=== PATIENT | male | born 1980 | race African-American/Black ===

== ENCOUNTER 2018-10-02 17:18 | Emergency (ER) | payer OTHER ==
--- NOTE | 2018-10-02 19:03 | XRAY Report ---
Reason: cough Procedure Date: 10/02/2018 Accession Number: [id number] / [id number] Procedure: XR - Chest 2 View X-Ray CPT Code: 86964 FULL RESULT: EXAM: CHEST RADIOGRAPHY EXAM DATE: 10/02/2018 06:23 PM. CLINICAL HISTORY: Cough. COMPARISON: None. TECHNIQUE: 2 views. FINDINGS: Lungs/Pleura: No focal opacities evident. No pleural effusion. No pneumothorax. Normal volumes. Mediastinum: Heart and mediastinal contours are unremarkable. Other: None. IMPRESSION: Normal 2-view chest radiography. [facility]
--- NOTE | 2018-10-02 19:19 | ED Physician Documentation ---
PD HPI URI - Stated complaint Stated Complaint: COUGH, CHEST PAIN, BODY ACHE - Chief complaint Chief Complaint: Resp - History obtained from History obtained from: Patient - History of Present Illness Timing - onset: How many weeks ago (2) Timing duration: Weeks (2) Timing details: Abrupt onset, Still present (had URI symptoms initially and then was feeling like she started to get better, then cough worsened with green sputum and tightness for breathing.) Associated symptoms: Productive cough, Chest pain (anteriorly with coughing), Dyspnea. No: Fever Contributing factors: No: Sick contact, Travel Similar symptoms before: Has not had sx before Recently seen: Not recently seen Review of Systems Constitutional: reports: Myalgias, Fatigue. denies: Fever, Chills Nose: reports: Rhinorrhea / runny nose, Congestion (2 weeks ago, but is improved the past week) Throat: denies: Sore throat Cardiac: reports: Chest pain / pressure (with coughing) Respiratory: reports: Dyspnea, Cough, Wheezing GI: denies: Abdominal Pain, Nausea, Vomiting Musculoskeletal: denies: Extremity swelling PD PAST MEDICAL HISTORY - Past Medical History Cardiovascular: None Respiratory: None - Present Medications Home Medications: Ambulatory Orders Medication Instructions Recorded Confirmed Albuterol Sulf [Ventolin Hfa 1 - 2 puffs INH Q4HR PRN #1 inhaler 10/02/18 Inhaler] Benzonatate [Tessalon Perle] 100 - 200 mg PO TID PRN #30 capsule 10/02/18 Dexamethasone [Decadron] 4 mg PO DAILY #5 tablet 10/02/18 Doxycycline Hyclate 100 mg PO BID #20 capsule 10/02/18 Ibuprofen [Advil] 400 mg PO 10/02/18 - Allergies Allergies/Adverse Reactions: Allergies Allergy/AdvReac Type Severity Reaction Status Date / Time No Known Drug Allergies Allergy Verified 10/02/18 17:49 PD ED PE NORMAL - Vitals Vital signs reviewed: Yes - General General: Alert and oriented X 3, No acute distress, Well developed/nourished - HEENT HEENT: Ears normal, Moist mucous membranes, Pharynx benign - Neck Neck: Supple, no meningeal sign, No adenopathy - Cardiac Cardiac: RRR, No murmur - Respiratory Respiratory: Clear bilaterally, Other (some expiratory wheezing noted central chest. Congested cough.) - Abdomen Abdomen: Normal bowel sounds, Soft, Non tender, Non distended Results - Vitals Vitals: Oxygen O2 Source Room air - Labs Labs: Microbiology 10/02/18 19:20 Group A Strep Throat Culture - Preliminary Throat CULTURE IN PROGRESS. RESULTS TO FOLLOW. Laboratory Tests 10/02/18 19:20 Group A Strep Rapid Negative - Rads (name of study) chest xray Radiology: Prelim report reviewed (no infiltrates), EMP read contemporaneously PD MEDICAL DECISION MAKING - ED course Complexity details: considered differential, d/w patient Departure - Departure Disposition: Home, Self Care Clinical Impression: Acute bronchitis Qualifiers: Bronchitis organism: unspecified organism Qualified Code(s): J20.9 - Acute bronchitis, unspecified Condition: Stable Record reviewed to determine appropriate education?: Yes Instructions: ED Upper Resp Infec Abx Tx Follow-Up: JAY LÓPEZ III, MD [Primary Care Provider] - Prescriptions: Albuterol Sulf [Ventolin Hfa Inhaler] 1 - 2 puffs INH Q4HR PRN #1 inhaler PRN Reason: Shortness Of Air/Wheezing Benzonatate [Tessalon Perle] 100 - 200 mg PO TID PRN #30 capsule PRN Reason: Cough Dexamethasone [Decadron] 4 mg PO DAILY #5 tablet Doxycycline Hyclate 100 mg PO BID #20 capsule Comments: Stay well-hydrated. Tylenol or ibuprofen if needed for fevers or pains. Use albuterol inhaler 2 puffs 4 times a day for the next 7-10 days then other times as needed. Decadron steroid daily for 5 more days. Tessalon if needed for cough. Doxycycline for potential bacterial component to the infection. Recheck if not improving over the next few days. Off work for 1 or 2 days. Forms: Activity restrictions Discharge Date/Time: 10/02/18 20:39
[2018-10-02] MEDS ORDERED: DOXYCYCLINE 100 MG TABLET PO STA (19:40)
[2018-10-02] MEDS ORDERED: DEXAMETHASONE 10 MG/ML VIAL PO STA (19:40)
[2018-10-02] MEDS ORDERED: BENZONATATE 100 MG CAPSULE PO STA (19:40)
[2018-10-02] MEDS ORDERED: CHERRY SYRUP 10 ML UDC PO ONE (19:48)
[2018-10-02 20:34] VITALS: BP 141/98
== END 2018-10-02 20:39 | disposition home or self-care (01) ==
LOC: ED 17:18
DX: J02.9 Acute pharyngitis, unspecified (principal)
CPT/HCPCS: 71046; 87070; 87430; 99283; A9270

== ENCOUNTER 2018-10-05 11:26 | Outpatient (CLI) | payer OTHER ==
[2018-10-05] MEDS ORDERED: BUFFERED LIDOCAINE 10 ML SYRINGE ONE (12:18)
[2018-10-05] MEDS ORDERED: GADOPENTETATE DIMEGLUMINE 5 ML VIAL IVP ONE ×3 (12:19→15:12)
[2018-10-05] MEDS ORDERED: IOTHALAMATE MEGLUMINE 50 ML VIAL ONE (12:19)
[2018-10-05] MEDS ORDERED: IOTHALAMATE MEGLUMINE 50 ML VIAL IVP ONE ×2 (15:12)
[2018-10-05] MEDS ORDERED: BUFFERED LIDOCAINE 10 ML SYRINGE IU ONE ×2 (15:12→16:00)
[2018-10-05] MEDS: BUFFERED LIDOCAINE 10 ML SYRINGE IU ONE ×3 (15:15→15:20)
--- NOTE | 2018-10-05 15:53 | XRAY Report ---
Reason: OTHER ARTICULAR CARTILAGE DISORDERS, UNSPECIFIED S Procedure Date: 10/05/2018 Accession Number: [id number] / [id number] Procedure: FL - Arthrogram Needle Placement CPT Code: FULL RESULT: EXAM: RIGHT SHOULDER ARTHROGRAPHIC INJECTION WITH FLUOROSCOPIC GUIDANCE EXAM DATE: 10/05/2018 01:32 PM. CLINICAL HISTORY: OTHER ARTICULAR CARTILAGE DISORDERS, UNSPECIFIED S. COMPARISON: ARTHROGRAM SHOULDER RT 10/05/2018 1:33 PM. TECHNIQUE: The risks, benefits, and alternatives of the procedure were discussed with the patient. All questions were answered. Written and verbal consent were obtained. The glenohumeral joint was marked under fluoroscopy and prepped and draped in a sterile manner. Local anesthesia was performed with 1% lidocaine. A 22-gauge needle was then inserted into the glenohumeral joint. 10 mL of a solution containing 25% 1% lidocaine, 25% iodinated contrast, and a 1:200 dilution of gadolinium contrast in sterile saline was then injected. The needle was removed without immediate complication. Other: None. Fluoroscopy Time: 0.3 minutes. Number of Images: 5. FINDINGS: Bones and joints: No fracture or subluxation. Injection: Fluoroscopic images demonstrate needle placement and contrast in the glenohumeral joint. No contrast extravasation outside of the glenohumeral joint. IMPRESSION: Successful fluoroscopically guided arthrographic injection of the shoulder. [facility]
--- NOTE | 2018-10-05 17:35 | MRI Report ---
Reason: OTHER ARTICULAR CARTILAGE DISORDERS, UNSPECIFIED S Procedure Date: 10/05/2018 Accession Number: [id number] / [id number] Procedure: MRI - Arthrogram Shoulder RT CPT Code: FULL RESULT: EXAM: RIGHT SHOULDER MRI ARTHROGRAM WITH CONTRAST EXAM DATE: 10/05/2018 02:05 PM. CLINICAL HISTORY: Multiple dislocations. Shoulder pain. COMPARISON: None. TECHNIQUE: Multiplanar, multisequence T1-weighted and fluid-sensitive sequences of the shoulder after an arthrographic injection of dilute gadolinium, dictated under a separate exam. Other: None. FINDINGS: Acromioclavicular Region: The acromion is type II. AC joint is moderately osteoarthritic. The coracoacromial and coracoclavicular ligaments are intact. There is no contrast or fluid in the subacromial/subdeltoid bursa. Glenohumeral Region: No subluxation. No loose bodies. The articular cartilage is unremarkable. The glenohumeral ligaments and joint capsule are unremarkable. Bone Marrow: No fracture, marrow edema or bone lesions. No Hill-Sachs or bony Bankart is identified. Labrum: There is a type II SLAP lesion at the undersurface of the biceps labral attachment outlined well with contrast. Series 601 image 10. Biceps Tendon: The long head of the biceps tendon and biceps davin are intact. Musculature/Rotator Cuff: Significant thickening and increased T2 signal in the supraspinatus and infraspinatus tendons. Subscapularis also shows some increased T2 signal, but this is probably an artifact of injection. Teres minor is normal. No proximal muscular edema or fatty atrophy. Other: The subcutaneous tissues are unremarkable. IMPRESSION: 1. AC joint is moderately osteoarthritic. Type II unipartite undersurface osseous acromion shape. No fractures are noted. 2. Type II SLAP lesion is present. 3. Significant tendinitis without partial or full-thickness tearing seen at the supraspinatus and infraspinatus tendons. [facility] MUSCULOSKELETAL RADIOLOGY SECTION
== END 2018-10-05 11:27 | disposition home or self-care (01) ==
LOC: DI 11:26
DX: M19.011 Primary osteoarthritis, right shoulder (principal); S43.431A Superior glenoid labrum lesion of right shoulder, initial encounter; M75.91 Shoulder lesion, unspecified, right shoulder
CPT/HCPCS: 23350; 73222; 77002; Q9961

== ENCOUNTER 2019-04-04 11:56 | Emergency (ER) | payer OTHER ==
[2019-04-04 12:07] VITALS: BP 150/100
--- NOTE | 2019-04-04 12:22 | ED Physician Documentation ---
History of Present Illness - Stated complaint Stated Complaint: NECK SWOLLEN/SOA - Chief complaint Chief Complaint: Heent - History obtained from History obtained from: Patient - Additonal information Additional information: Patient is a previously healthy 39-year-old male with history of chronic sinusitis presenting with about 45 minutes of palpable mass to left-sided neck that is nontender. Patient denies associated fever, chills, ear pain, ear drainage, rhinorrhea, but reports nasal congestion at baseline. Patient also denies sore throat, dental pain, facial changes including swelling or rash. Patient denies any difficulty breathing. No other improving or worsening factors noted. Review of Systems Constitutional: denies: Fever Ears: denies: Ear pain, Drainage/discharge Nose: reports: Congestion. denies: Rhinorrhea / runny nose Throat: denies: Dental pain / toothache, Sore throat Cardiac: denies: Chest pain / pressure Respiratory: denies: Dyspnea Skin: denies: Rash Musculoskeletal: denies: Neck pain PD PAST MEDICAL HISTORY - Past Medical History Cardiovascular: None Respiratory: None Neuro: None Endocrine/Autoimmune: None GI: None : None HEENT: None Psych: None Musculoskeletal: None Derm: None - Past Surgical History Past Surgical History: No - Present Medications Home Medications: Ambulatory Orders Medication Instructions Recorded Confirmed Albuterol Sulf [Ventolin Hfa 1 - 2 puffs INH Q4HR PRN #1 inhaler 10/02/18 Inhaler] Benzonatate [Tessalon Perle] 100 - 200 mg PO TID PRN #30 capsule 10/02/18 Doxycycline Hyclate 100 mg PO BID #20 capsule 10/02/18 Ibuprofen [Advil] 400 mg PO 10/02/18 dexAMETHasone [Decadron] 4 mg PO DAILY #5 tablet 10/02/18 - Allergies Allergies/Adverse Reactions: Allergies Allergy/AdvReac Type Severity Reaction Status Date / Time No Known Drug Allergies Allergy Verified 04/04/19 12:07 - Social History Does the pt smoke?: No Smoking Status: Never smoker Does the pt drink ETOH?: Yes Does the pt have substance abuse?: No - Immunizations Immunizations are current?: Yes - POLST Patient has POLST: No PD ED PE NORMAL - Vitals Vital signs reviewed: Yes - General General: Alert and oriented X 3, No acute distress, Well developed/nourished - HEENT HEENT: Atraumatic, Ears normal, Moist mucous membranes, Pharynx benign, Dentition benign, Other (No evidence of dental abscess, Alfredo's angina, tonsillitis, pharyngitis, peritonsillar abscess, retropharyngeal abscess, otitis media, otitis externa, mastoiditis, facial abscess. Mobile, soft, nontender but palpable left sided submandibular lymph node.) - Neck Neck: Supple, no meningeal sign - Cardiac Cardiac: RRR, No murmur - Respiratory Respiratory: No respiratory distress, Clear bilaterally - Derm Derm: Normal color, Warm and dry, No rash - Extremities Extremities: No deformity, No tenderness to palpate - Neuro Neuro: Alert and oriented X 3, No motor deficit, No sensory deficit - Psych Psych: Normal mood, Normal affect Results - Vitals Vitals: Vital Signs - 24 hr 04/04/19 12:04 Temperature 36.1 C L Heart Rate 76 Respiratory 18 Rate Blood Pressure 150/100 H O2 Saturation 98 Oxygen O2 Source Room air PD MEDICAL DECISION MAKING - ED course Complexity details: considered differential, d/w patient ED course: Patient presenting with an enlarged submandibular lymph node that is otherwise uncomplicated. Do not find evidence of acute infection such as otitis media, otitis externa, mastoiditis, pharyngitis, tonsillitis, peritonsillar abscess. Do not have high suspicion for Angeline's angina, dental abscess, facial abscess. Patient does report chronic sinusitis for which she received CT imaging yesterday and is to follow-up with ENT in the next several weeks. This could be related. Patient also could be experiencing viral illness. No signs of difficulty swallowing or respiratory compromise. At this time, do not feel patient requires further invasive testing or imaging, but can be treated as an outpatient and follow-up appropriately. Discussed strict return precautions and patient voiced understanding and is comfortable with discharge plan. Departure - Departure Disposition: 01 Home, Self Care Clinical Impression: Lymph node enlargement Condition: Good Instructions: ED Cervical Adenitis No Abx Tx, Lymphadenopathy Follow-Up: your,doctor [Other] - Within 3 Days Comments: Recommend follow-up with your primary care physician in next 2 to 3 days and ENT as scheduled in the next several weeks. If experiencing pain, inflammation, fever may use ibuprofen/Tylenol. Return to ED sooner if expands worsening symptoms or have other concerns.
== END 2019-04-04 12:53 | disposition home or self-care (01) ==
LOC: ED 11:56
DX: R59.0 Localized enlarged lymph nodes (principal); J32.9 Chronic sinusitis, unspecified
CPT/HCPCS: 99282